=== PATIENT | female | born 1945 | race Caucasian/White ===

== ENCOUNTER → 2021-05-15 | Outpatient (CLI) | payer MEDICARE ==
[~2021-05-15] MED LIST: FAMC500 PO; FLUSAL1005; HYDACE5 PO; MONT10T
[2021-05-16 11:22] LABS: Microalb/Creat Ratio UR, Rand 15.235 mg/g (0.000-30.000); Microalbumin, Random Urine 25.9 mg/L (0.000-20.000)
== END | disposition home or self-care (01) ==
LOC: LAB SHORT 09:59 → LAB FUT 05-11 11:15
PROVIDERS: Internal Medicine
DX: I12.9 Hypertensive chronic kidney disease with stage 1 through stage 4 chronic kidney disease, or unspecified chronic kidney disease (principal); N18.32 Chronic kidney disease, stage 3b; E78.5 Hyperlipidemia, unspecified
CPT/HCPCS: 82043; 82570

== ENCOUNTER 2021-08-20 07:58 | Inpatient (IN) | payer MEDICARE ==
[~2021-08-20] VITALS: Ht 170.2 cm; Wt 76.2 kg
[2021-08-20 09:11] LABS: Albumin, Blood 3.5 g/dL (3.4-5.0); Albumin/Globulin Ratio 0.9 (0.8-1.8); Bilirubin, Total 0.5 mg/dL (0.1-1.0); Bun/Creatinine Ratio 15.1 (12.0-20.0); Calcium, Blood 9.8 mg/dL (8.5-10.1); Creatinine, Blood 1.06 mg/dL (0.40-1.00); Globulin, Blood 3.7 g/dL (2.2-4.0); Potassium, Blood 4.1 mmol/L (3.5-5.5); Total Protein, Blood 7.2 g/dL (6.4-8.2)
[2021-08-20 09:33] LABS: BASOPHILS ABSOLUTE AUTO 0.05 K/mm3 (0.00-0.23); BASOPHILS PERCENT AUTO 1 % (0-2); EOSINOPHILS ABSOLUTE AUTO 0.41 K/mm3 (0.00-0.68); EOSINOPHILS PERCENT AUTO 5 % (0-6); Hemoglobin 13.7 g/dL (11.5-16.0); IMMATURE GRAN ABSOLUTE AUTO 0.02 K/mm3 (0.00-0.10); IMMATURE GRAN PERCENT AUTO 0 % (0-1); LYMPHOCYTES ABSOLUTE AUTO 1.88 K/mm3 (0.84-5.20); LYMPHOCYTES PERCENT AUTO 23 % (21-46); MONOCYTES PERCENT AUTO 8 % (4-13); Mean Corpuscular HGB 30.6 pg (26.0-34.0); Mean Corpuscular HGB Conc 33.4 g/dL (31.5-36.5); Mean Corpuscular Volume 92 fL (80-100); Mean Platelet Volume 10.3 fL (9.1-12.4); NEUTROPHILS ABSOLUTE AUTO 5.08 K/mm3 (1.96-9.15); NEUTROPHILS PERCENT AUTO 63 % (41-73); Platelet Count 254 K/mm3 (150-400); RDW Coefficient Variation 13.1 % (11.7-14.2); RDW Standard Deviation 44.1 fL (35.1-46.3); Red Blood Cell Count 4.47 M/mm3 (3.80-5.20); White Blood Cell Count 8.04 K/mm3 (4.00-11.30)
[2021-08-20 13:56] LABS: CHOL/HDL RATIO 2.1; Cholesterol 139 mg/dL (50-200); HDL Cholesterol 66 mg/dL (>39); LDL/HDL RATIO 0.8; Low Density Lipoprotein Chol 50 mg/dL (0-110); Triglycerides 115 mg/dL (30-160); Very Low Density Lipoprot Chol 23 mg/dL (6-32)
[2021-08-20 15:52] LABS: Source, Urine Clean Catch
[2021-08-20 15:58] LABS: Appearance, Urine Hazy (Clear); Bilirubin, Urine Neg (Neg); Blood, Urine Neg (Neg); Color, Urine Yellow (P-Yellow); Glucose Qualitative, Urine Neg (Neg); Ketones, Urine Neg (Neg); Leukocyte Esterase, Urine 1+ (Neg); Nitrite, Urine Pos (Neg); Protein, Urine Neg (Neg); Specific Gravity, Urine 1.015 (1.003-1.022); Urobilinogen, Urine NORM (Normal)
[2021-08-20 16:40] LABS: Bacteria Many /hpf; Red Blood Cells, Urine 0-2 /hpf (0-2); Squamous Epithelial Cells Mod /hpf (Few)
[2021-08-20] MEDS ORDERED: ATOR20 PO (17:23)
[2021-08-20] MEDS ORDERED: VITAMIN D5000 UNIT PO (17:29)
[2021-08-20] MEDS ORDERED: ESTRADIOL42.5 GM VAG (17:29)
[2021-08-20] MEDS ORDERED: NEBI5 PO (17:30)
[2021-08-20] MEDS ORDERED: WIXELA 100-501 EAC1 INH (17:31)
--- NOTE | 2021-08-20 18:45 | NUR ---
CALLED DR AYERS- PT BP IS ELEVATED, NO PRNS. PERMISSIVE HTN OK LONG SBP IS LESS THAN 200, NO PRN MEDS. RECIEVED ORDER FOR PRN HYDRALIZINE PO FOR SBP GREATER THAN 200. IVF ORDERED FOR PT ON ADMIT SHE WAS NPO. D/T HTN NOT STARTED PT WAS SEEN AND CLEARED BY SPEECH THERAPY FOR FOOD AND WATER. ORDER RECIEVED TO DC IVF AT THIS TIME.
--- NOTE | 2021-08-20 18:54 | NUR ---
SHIFT SUMMARY- PT ADMITTED THROUGH THE ED FOR NEW CVA. PT ARRIVED ON MEDICAL FLOOR ON ROOM AIR NO S&S OF DISTRESS NOTED. NPO STATUS ON ARRIVAL CALLED [facility] WHO CAME AND EVALUATED THE PT. PT WAS CLEARED AND ALLOWED TO EAT TONIGHT. PT ALERT AND ORIENTED A LITTLE FORGETFUL WITH OCCASSIONALLY SLURRED SPEECH. SPOUSE WENT HOME AND GOT THE PT MEDICATION LIST. MED REC COMPLETED. ADMIT COMPLETED, PT IN BED CALL LIGHT IN REACH NO S&S OF DISTRESS NOTED 2PA FOR TRANSFER SAFETY.
--- NOTE | 2021-08-21 06:18 | NUR ---
Shift Summary Patient with no acute changes overnight. BP improved to 136/78, neuro checks done q4h with no changes (a/ox4, no headaches, no numbnes, negative FAST, no slurred speech). Gait remained unsteady.
[2021-08-21] MEDS ORDERED: ATOR80 PO (14:17)
[2021-08-21] MEDS ORDERED: ASPI81CH PO (14:18)
[2021-08-21] MEDS ORDERED: CLOP75 PO (14:19)
[2021-08-21] MEDS ORDERED: LISI20 PO (14:21)
--- NOTE | 2021-08-21 15:48 | NUR ---
DISCHARGE NOTE THE PATIENT WAS DISCHARGED THIS SHIFT AT 1445 VIA WHEELCHAIR WITH SPOUSE. THE PATIENT AND SPOUSE VERBALIZED UNDERSTANDING OF DISCHARGE INSTRUCTIONS AND FURTHER CARE. IV WAS DC'D. VSS AT DISCHARGE. NOTHING FURTHER TO REPORT.
== END 2021-08-21 14:58 | disposition home health service (06) | DRG 65 ==
LOC: ER 07:58 → MEDS 12:15
PROVIDERS: Nurse Practitioner Acute Care; Physician Assistant; ADMIT Internal Medicine
DX: I63.89 Other cerebral infarction (principal); G81.91 Hemiplegia, unspecified affecting right dominant side; R47.81 Slurred speech; R29.705 NIHSS score 5; R27.0 Ataxia, unspecified; R47.1 Dysarthria and anarthria; J45.909 Unspecified asthma, uncomplicated; E78.5 Hyperlipidemia, unspecified; I12.9 Hypertensive chronic kidney disease with stage 1 through stage 4 chronic kidney disease, or unspecified chronic kidney disease; N18.30 Chronic kidney disease, stage 3 unspecified; R82.71 Bacteriuria; Z98.890 Other specified postprocedural states; Z79.899 Other long term (current) drug therapy
CPT/HCPCS: 36415; 70450; 70496; 70498; 80053; 80061; 81001; 83036; 83735; 85025; 87077; 87086; 87186; 92526; 92610; 93005; 93010; 93308; 93321; 94640; 94664; 94760; 97112; 97116; 97162; 97166; 97535; 99285-25; A9270; J1650; J7030; Q9967

== ENCOUNTER 2022-11-16 21:12 | Inpatient (IN) | payer MEDICARE ==
[~2022-11-16] VITALS: Ht 154.9 cm; Wt 82.0 kg
[~2022-11-16 21:12] MED LIST changes: +ASPI81CH PO; +ATOR20 PO; +ATOR80 PO; +CLOP75 PO; +ESTRADIOL42.5 GM VAG; +LISI20 PO; -MONT10T; +MONT10T PO; +NEBI5 PO; +VITAMIN D5000 UNIT PO; +WIXELA 100-501 EAC1 INH
[2022-11-16 22:39] LABS: Albumin, Blood 3.4 g/dL (3.4-5.0); Albumin/Globulin Ratio 0.8 (0.8-1.8); Bilirubin, Total 1.2 mg/dL (0.1-1.0); Bun/Creatinine Ratio 20.5 (12.0-20.0); Calcium, Blood 10.7 mg/dL (8.5-10.1); Creatinine, Blood 1.46 mg/dL (0.40-1.00); Globulin, Blood 4.3 g/dL (2.2-4.0); Potassium, Blood 3.9 mmol/L (3.5-5.5); Total Protein, Blood 7.7 g/dL (6.4-8.2)
[2022-11-16 23:45] LABS: BASOPHILS ABSOLUTE AUTO 0.12 K/mm3 (0.00-0.23); BASOPHILS PERCENT AUTO 1 % (0-2); EOSINOPHILS ABSOLUTE AUTO 0.01 K/mm3 (0.00-0.68); EOSINOPHILS PERCENT AUTO 0 % (0-6); Hematocrit 46.1 % (33.0-51.0); Hemoglobin 15.9 g/dL (11.5-16.0); IMMATURE GRAN PERCENT AUTO 3 % (0-1); LYMPHOCYTES ABSOLUTE AUTO 1.05 K/mm3 (0.84-5.20); LYMPHOCYTES PERCENT AUTO 5 % (21-46); MONOCYTES ABSOLUTE AUTO 1.06 K/mm3 (0.16-1.47); MONOCYTES PERCENT AUTO 5 % (4-13); Mean Corpuscular HGB 30.4 pg (26.0-34.0); Mean Corpuscular HGB Conc 34.5 g/dL (31.5-36.5); Mean Corpuscular Volume 88 fL (80-100); Mean Platelet Volume 10.6 fL (9.1-12.4); NEUTROPHILS ABSOLUTE AUTO 20.62 K/mm3 (1.96-9.15); NEUTROPHILS PERCENT AUTO 88 % (41-73); Platelet Count 256 K/mm3 (150-400); RDW Coefficient Variation 12.9 % (11.7-14.2); RDW Standard Deviation 41.8 fL (35.1-46.3); Red Blood Cell Count 5.23 M/mm3 (3.80-5.20); White Blood Cell Count 23.46 K/mm3 (4.00-11.30)
[2022-11-17 00:38] LABS: Source, Urine Clean Catch
[2022-11-17 01:18] LABS: Blood, Urine 2+ (Neg); Glucose Qualitative, Urine Neg (Neg); Ketones, Urine 1+ (Neg); Leukocyte Esterase, Urine 2+ (Neg); Nitrite, Urine Pos (Neg); Protein, Urine 3+ (Neg); Urobilinogen, Urine NORM (Normal)
[2022-11-17 01:34] LABS: Bilirubin, Urine 1+ (Neg)
[2022-11-17 01:35] LABS: Appearance, Urine Cloudy (Clear); Color, Urine Yellow (P-Yellow)
[2022-11-17 01:36] LABS: Bacteria Mod /hpf; Red Blood Cells, Urine 0-2 /hpf (0-2); Squamous Epithelial Cells Many /hpf (Few)
[2022-11-17 04:54] VITALS: BP 118/61
[2022-11-17 05:20] LABS: Hematocrit 37.8 % (33.0-51.0); Hemoglobin 13.1 g/dL (11.5-16.0); Mean Corpuscular HGB 30.4 pg (26.0-34.0); Mean Corpuscular HGB Conc 34.7 g/dL (31.5-36.5); Mean Corpuscular Volume 88 fL (80-100); Mean Platelet Volume 10.1 fL (9.1-12.4); Platelet Count 202 K/mm3 (150-400); RDW Standard Deviation 41.7 fL (35.1-46.3); Red Blood Cell Count 4.31 M/mm3 (3.80-5.20); White Blood Cell Count 26.19 K/mm3 (4.00-11.30)
[2022-11-17 05:55] LABS: BAND PERCENT MAN 10 % (0-8); BASOPHILS PERCENT MAN 0 % (0-2); EOSINOPHILS PERCENT MAN 0 % (0-6); LYMPHOCYTES % ATYPICAL MANUAL 2 % (0-0); LYMPHOCYTES ABSOLUTE MAN 2.61 K/mm3 (0.84-5.20); LYMPHOCYTES PERCENT MAN 8 % (21-46); MONOCYTES ABSOLUTE MAN 2.09 K/mm3 (0.16-1.47); MONOCYTES PERCENT MAN 8 % (4-13); NEUTROPHILS ABSOLUTE MAN 21.47 K/mm3 (1.96-9.15); SEG NEUTROPHILS PERCENT MAN 72 % (41-73); TOTAL CELLS COUNTED 100
[2022-11-17 06:00] LABS: Albumin, Blood 2.6 g/dL (3.4-5.0); Albumin/Globulin Ratio 0.7 (0.8-1.8); Bilirubin, Total 0.4 mg/dL (0.1-1.0); Bun/Creatinine Ratio 21.3 (12.0-20.0); Calcium, Blood 9.9 mg/dL (8.5-10.1); Creatinine, Blood 1.5 mg/dL (0.40-1.00); Globulin, Blood 3.8 g/dL (2.2-4.0); Total Protein, Blood 6.4 g/dL (6.4-8.2)
--- NOTE | 2022-11-17 06:00 | NUR ---
ARRIVAL TO [facility]/SAFETY/SHIFT SUMMARY PT & FAMILY EDUCATED RE: IGNITION SOURCES & RISK OF INJURY WHILE OXYGEN IS IN USE. PT DENIES SMOKING AND PT & FAMILY VERBALIZE UNDERSTANDING. PT ARRIVED TO [facility] AT APPROXIMATELY 0440. PT TRANSFERED FROM [facility] TO HOSPITAL BED WITH SBA. PT A&Ox4, COMMUNICATES NEED APPROPRIATELY, ORIENTED TO CALL LIGHT/UNIT. BP STABLE, SINUS 80's, DENIES CP/PRESSURE. SpO2> 92% RA, DENIES SOB. DENIES PAIN. NS INFUSING PER EMAR. BED IN LOWEST POSITION, CALL LIGHT IN REACH. NO OTHER EVENTS, WILL REPORT TO ONCOMING RN.
[2022-11-17 07:41] VITALS: BP 137/71
[2022-11-17 15:22] VITALS: BP 116/57
--- NOTE | 2022-11-17 16:04 | NUR ---
CALLED DR. ALCANTAR NOTIFIED DR. ALCANTAR OF POSITIVE BLOOD CULTURES FOR GRAM NEG RODS. HE STATES HE WILL LOOK INTO THE ANTIBITOICS TO MAKES SURE THE PT IS PROPERLY BEING COVERED. NO FURTHER ORDERS AT THIS TIME.
[2022-11-17 16:37] VITALS: BP 149/69
--- NOTE | 2022-11-17 17:06 | NUR ---
SHIFT SUMMARY PT IS A&OX4, CALLS APPROPRAITELY/ CAN MAKE HER NEEDS KNOWN. SHE HAS BEEN UP IN THE CHAIR FOR ABOUT HALF THE DAY AND NAPPING THE OTHER HALF. SHE IS ON RA, AND HAS DENIED SOB. SHE WAS SR 80'S ON TELE, BUT SHE GOT SWITCHED TO MED NO TELE. PT DENIES ANY ANGINA OR CHEST PRESSURE. PT WAS MADE STRICT I&O'S AND HAD ONE UNMEASURED VOID AND ONE VOID OF 500CC'S. FAMILY AT BEDSIDE MOST OF THE DAY. FAMILY AND PT ASSESSED AND EDUCATED ON FIRE IGNITION RISKS AND SAFETY. SEE NOTES FOR ANY UPDATES.
[2022-11-17 19:45] VITALS: BP 121/53
[2022-11-18 04:37] LABS: BASOPHILS ABSOLUTE AUTO 0.04 K/mm3 (0.00-0.23); BASOPHILS PERCENT AUTO 0 % (0-2); EOSINOPHILS PERCENT AUTO 0 % (0-6); Hematocrit 32.3 % (33.0-51.0); Hemoglobin 11.2 g/dL (11.5-16.0); IMMATURE GRAN ABSOLUTE AUTO 0.14 K/mm3 (0.00-0.10); IMMATURE GRAN PERCENT AUTO 1 % (0-1); LYMPHOCYTES ABSOLUTE AUTO 1.09 K/mm3 (0.84-5.20); LYMPHOCYTES PERCENT AUTO 7 % (21-46); MONOCYTES ABSOLUTE AUTO 1.09 K/mm3 (0.16-1.47); MONOCYTES PERCENT AUTO 7 % (4-13); Mean Corpuscular HGB 30.4 pg (26.0-34.0); Mean Corpuscular HGB Conc 34.7 g/dL (31.5-36.5); Mean Corpuscular Volume 88 fL (80-100); Mean Platelet Volume 10.5 fL (9.1-12.4); NEUTROPHILS ABSOLUTE AUTO 13.15 K/mm3 (1.96-9.15); NEUTROPHILS PERCENT AUTO 85 % (41-73); Platelet Count 165 K/mm3 (150-400); RDW Coefficient Variation 13.2 % (11.7-14.2); RDW Standard Deviation 43.2 fL (35.1-46.3); Red Blood Cell Count 3.68 M/mm3 (3.80-5.20); White Blood Cell Count 15.51 K/mm3 (4.00-11.30)
[2022-11-18 05:07] VITALS: BP 154/81
[2022-11-18 05:12] LABS: Albumin/Globulin Ratio 0.6 (0.8-1.8); Bilirubin, Total 0.4 mg/dL (0.1-1.0); Bun/Creatinine Ratio 25.2 (12.0-20.0); Calcium, Blood 8.4 mg/dL (8.5-10.1); Creatinine, Blood 1.11 mg/dL (0.40-1.00); Globulin, Blood 3.5 g/dL (2.2-4.0); Potassium, Blood 3.5 mmol/L (3.5-5.5); Total Protein, Blood 5.5 g/dL (6.4-8.2)
--- NOTE | 2022-11-18 05:28 | NUR ---
SHIFT SUMMARY A/OX4, SBA TO BATHROOM. SPO2 >92% ON RA. DENIES CHEST PAIN/PRESSURE. IV FLUIDS INFUSING PER EMAR. SLEPT T/O NIGHT. VSS, NO ACUTE CHANGES AT THIS TIME. BED IN LOWEST POSITION WITH CALL LIGHT IN REACH. WILL CONTINUE TO MONITOR AND REPORT TO ONCOMING RN. PT & FAMILY EDUCATED RE: IGNITION SOURCES & RISK OF INJURY WHILE OXYGEN IS IN USE. PT DENIES SMOKING AND PT & FAMILY VERBALIZE UNDERSTANDING.
--- NOTE | 2022-11-18 07:49 | NUR ---
AMBULATORY TO BATHROOM WITH MINIMAL ASSISTANCE FOR IV POLE
[2022-11-18 08:30] VITALS: BP 155/82
--- NOTE | 2022-11-18 14:35 | NUR ---
TRANSFER SUMMARY: PT TX TO ROOM 339. REPORT RECEIVED FROM NIKKI LARSON. PT IN ROOM AT THIS TIME A/O X 4, STANDBY ASSIST. SPOUSE IN ROOM WITH PT. PT DENIES PAIN, NAUSEA, CONCERNS. RESTING AND APPEARS TO BE IN NO DISTRESS, SMILES WITH INTERACTION. ORIENTED PT TO ROOM, CALL LIGHT, FALL PRECAUTIONS, SMOKING PRECAUTIONS. PT AND SPOUSE DENY HAVING IGNITION MATERIALS. PT PLEASANT AND COOPERATIVE.
[2022-11-18 16:20] VITALS: BP 160/88
[2022-11-18 19:17] VITALS: BP 151/77
--- NOTE | 2022-11-18 19:39 | NUR ---
SHIFT SUMMARY: PT A/O X 4, STANDBY ASSIST, PLEASANT AND COOPERATIVE WITH CARE. PT HAD NO COMPLAINTS AT SHIFT END. CONTINUES TO BE GETTING NS AT 15 ML/HOUR. NO REPORTS OF PAIN, NAUSEA, SYMPTOMS OF UTI.
--- NOTE | 2022-11-19 03:12 | NUR ---
SHIFT SUMMARY NOC PT A/O X 4. PLEASANT AND COOPERATIVE WITH CARE. RECEIVING IV ABX FOR UTI. HAS NS INFUSING @ 150 ML/HR. NO ACUTE CHANGES TO REPORT. PT IS CURRENTLY RESTING WITH BED IN LOWEST POSITION, AND CALL LIGHT WITHIN REACH.
[2022-11-19 05:16] VITALS: BP 155/79
[2022-11-19 05:38] LABS: BASOPHILS ABSOLUTE AUTO 0.02 K/mm3 (0.00-0.23); BASOPHILS PERCENT AUTO 0 % (0-2); EOSINOPHILS ABSOLUTE AUTO 0.02 K/mm3 (0.00-0.68); EOSINOPHILS PERCENT AUTO 0 % (0-6); Hematocrit 29.8 % (33.0-51.0); Hemoglobin 10.4 g/dL (11.5-16.0); IMMATURE GRAN ABSOLUTE AUTO 0.08 K/mm3 (0.00-0.10); IMMATURE GRAN PERCENT AUTO 1 % (0-1); LYMPHOCYTES ABSOLUTE AUTO 1.01 K/mm3 (0.84-5.20); LYMPHOCYTES PERCENT AUTO 8 % (21-46); MONOCYTES ABSOLUTE AUTO 0.96 K/mm3 (0.16-1.47); MONOCYTES PERCENT AUTO 7 % (4-13); Mean Corpuscular HGB 30.5 pg (26.0-34.0); Mean Corpuscular HGB Conc 34.9 g/dL (31.5-36.5); Mean Corpuscular Volume 87 fL (80-100); Mean Platelet Volume 10.5 fL (9.1-12.4); NEUTROPHILS ABSOLUTE AUTO 10.99 K/mm3 (1.96-9.15); NEUTROPHILS PERCENT AUTO 84 % (41-73); Platelet Count 167 K/mm3 (150-400); RDW Coefficient Variation 13.2 % (11.7-14.2); RDW Standard Deviation 42.3 fL (35.1-46.3); Red Blood Cell Count 3.41 M/mm3 (3.80-5.20); White Blood Cell Count 13.08 K/mm3 (4.00-11.30)
--- NOTE | 2022-11-19 05:55 | NUR ---
PT EDUCATED ON [facility] IGNITION/EXPLOSIVES NON SMOKING SAFETY POLICY.
[2022-11-19 06:04] LABS: Albumin, Blood 1.8 g/dL (3.4-5.0); Albumin/Globulin Ratio 0.5 (0.8-1.8); Bilirubin, Total 0.5 mg/dL (0.1-1.0); Bun/Creatinine Ratio 16.8 (12.0-20.0); Calcium, Blood 8.6 mg/dL (8.5-10.1); Creatinine, Blood 1.01 mg/dL (0.40-1.00); Globulin, Blood 3.7 g/dL (2.2-4.0); Potassium, Blood 3.3 mmol/L (3.5-5.5); Total Protein, Blood 5.5 g/dL (6.4-8.2)
[2022-11-19 07:47] VITALS: BP 180/80
[2022-11-19 18:05] VITALS: BP 179/85
--- NOTE | 2022-11-19 18:13 | NUR ---
EVENING NOTE PT LAERT AND OREINTED. MILD SOB WITH TALKING THIS MORNING. PT UP AD BALWINDER., VOICE QUALITY EASIER AND LESS STRAINED. VOIDING WELL. IVF STOPPED THIS MORNING. POOR APPETITE. DENIED PAIN. LOOKIGN FORWARD TO GOING HOME TOMORROW. FLAT AFFECT. CONTINUE POC.
[2022-11-19 19:09] VITALS: BP 159/74
[2022-11-20 04:52] VITALS: BP 208/94
[2022-11-20 05:06] VITALS: BP 185/87
--- NOTE | 2022-11-20 05:21 | NUR ---
SHIFT SUMMARY; NO ACUTE CHANGES OVERNIGHT. THE PT IS AXO X4 AND A STANDBY ASSIST TO THE BATHROOM. THE PT HAS BEEN SLEEPING IN BED FOR THE ENTIRETY OF THE SHIFT. THE PT DENIES ANY PAIN, SOB, CHEST PAIN/PRESSURE OR N/V THIS SHIFT. CURRENTLY THE PT IS SLEEPING IN BED WITH THE BED IN THE LOWEST POSITION AND THE CALL LIGHT AT BEDSIDE.
--- NOTE | 2022-11-20 05:50 | NUR ---
NOTIFIED RESIDENT OF PTS B/P OF THIS AM, RESIDENT DOCTOR TO PUT IN ORDERS FOR HYDRALAZINE.
--- NOTE | 2022-11-20 06:31 | NUR ---
FIRE SAFETY MAINTAINED T/O SHIFT.
[2022-11-20 07:31] VITALS: BP 174/78
[2022-11-20 08:12] LABS: BASOPHILS ABSOLUTE AUTO 0.03 K/mm3 (0.00-0.23); BASOPHILS PERCENT AUTO 0 % (0-2); EOSINOPHILS ABSOLUTE AUTO 0.11 K/mm3 (0.00-0.68); EOSINOPHILS PERCENT AUTO 1 % (0-6); Hematocrit 32.2 % (33.0-51.0); Hemoglobin 11.3 g/dL (11.5-16.0); IMMATURE GRAN ABSOLUTE AUTO 0.19 K/mm3 (0.00-0.10); IMMATURE GRAN PERCENT AUTO 2 % (0-1); LYMPHOCYTES ABSOLUTE AUTO 1.29 K/mm3 (0.84-5.20); LYMPHOCYTES PERCENT AUTO 11 % (21-46); MONOCYTES ABSOLUTE AUTO 1.24 K/mm3 (0.16-1.47); MONOCYTES PERCENT AUTO 11 % (4-13); Mean Corpuscular HGB 30.4 pg (26.0-34.0); Mean Corpuscular HGB Conc 35.1 g/dL (31.5-36.5); Mean Corpuscular Volume 87 fL (80-100); Mean Platelet Volume 9.9 fL (9.1-12.4); NEUTROPHILS ABSOLUTE AUTO 8.92 K/mm3 (1.96-9.15); NEUTROPHILS PERCENT AUTO 76 % (41-73); Platelet Count 200 K/mm3 (150-400); RDW Coefficient Variation 13.1 % (11.7-14.2); RDW Standard Deviation 41.4 fL (35.1-46.3); Red Blood Cell Count 3.72 M/mm3 (3.80-5.20); White Blood Cell Count 11.78 K/mm3 (4.00-11.30)
[2022-11-20 08:38] LABS: Bun/Creatinine Ratio 16.4 (12.0-20.0); Calcium, Blood 9.4 mg/dL (8.5-10.1); Creatinine, Blood 0.98 mg/dL (0.40-1.00); Potassium, Blood 3.6 mmol/L (3.5-5.5)
[2022-11-20] MEDS ORDERED: AMLO5 PO (11:24)
[2022-11-20] MEDS ORDERED: LEVO750 PO (11:25)
--- NOTE | 2022-11-20 13:29 | NUR ---
PT DISCHARGE AT 1215 AOX4 AND [facility]. PT HAD ALL PAPERWORK REVIEWED AND EDCUTATIONAL MATERIAL SENT WITH PT. PT VERBALIZED UNDRESTANDING AND WAS INSTRUCTED TO CONTINUE MONITORING OF BP AT HOME WITH NEW MEDICATION ADDED.PT HAS HAD HIGH BPs MORNGING WAS 174/78 HR 69. MEDICATION WAS ADDED TO EMAR AND PT HAD A BP OF 150/80 HR 66 PRIOR TO DISCHARGE. NO DISTRESS NOTED AND PT ESCORTED OUT WITH PERSONAL BELONGINGS TO S ENTRANCE IN WHEELCHAIR. PT ALSO RECIEVED EDUCTION DURING HOURLY ROUNDING OF THE DANGERS OF IGNITION SOURCES AND THE DANGER THEY HAVE WITH O2 IN USE WHICH CAN CAUSE BODILY INJURY AND HARM.
== END 2022-11-20 12:15 | disposition home or self-care (01) | DRG 871 ==
LOC: ER 21:12 → PCU 11-17 02:52 → MEDS 11-18 13:48
PROVIDERS: Family Medicine; Student in an Organized Health Care Education/Training Program; ADMIT Internal Medicine
DX: A41.50 Gram-negative sepsis, unspecified (principal); R65.21 Severe sepsis with septic shock; N39.0 Urinary tract infection, site not specified; N17.9 Acute kidney failure, unspecified; E87.21 Acute metabolic acidosis; I12.9 Hypertensive chronic kidney disease with stage 1 through stage 4 chronic kidney disease, or unspecified chronic kidney disease; N18.30 Chronic kidney disease, stage 3 unspecified; D63.1 Anemia in chronic kidney disease; E87.8 Other disorders of electrolyte and fluid balance, not elsewhere classified; E88.09 Other disorders of plasma-protein metabolism, not elsewhere classified; R10.9 Unspecified abdominal pain; E87.6 Hypokalemia; J45.909 Unspecified asthma, uncomplicated; E77.8 Other disorders of glycoprotein metabolism; M54.9 Dorsalgia, unspecified; Z86.73 Personal history of transient ischemic attack (TIA), and cerebral infarction without residual deficits; Z98.890 Other specified postprocedural states; Z79.82 Long term (current) use of aspirin; Z79.02 Long term (current) use of antithrombotics/antiplatelets; Z79.51 Long term (current) use of inhaled steroids; Z79.899 Other long term (current) drug therapy
CPT/HCPCS: 36415; 71046; 80048; 80053; 81001; 82565; 83605; 84484; 85025; 87040; 87077; 87086; 87186; 93005; 93010; 94640; 94664; 94760; 96361; 96365; 96367; 97110; 97116; 97162; 97165; 97535; 99285-25; A9270; J0456; J0696; J1650; J1956; J7030; J7050; J7120

== ENCOUNTER → 2024-04-13 | Outpatient (CLI) | payer MEDICARE ==
[~2024-04-13] MED LIST changes: +AMLO5 PO; +LEVO750 PO
[2024-04-18 17:49] LABS: HOURS COLLECTED 24 hr; TOTAL VOLUME 1200 mL
== END | disposition home or self-care (01) ==
LOC: LAB 08:30 → LAB SHORT 08:30 → LAB FUT 03-24 09:15
PROVIDERS: Internal Medicine
DX: R79.89 Other specified abnormal findings of blood chemistry (principal)
CPT/HCPCS: 81050; 84156; 84166; 86335